=== PATIENT | female | born 1950 | race Caucasian/White ===

== ENCOUNTER 2017-07-11 22:25 | Emergency (ER) | payer BC ==
[~2017-07-11] VITALS: Ht 162.6 cm; Wt 77.1 kg
[2017-07-11 22:31] VITALS: BP_SYST 139
[2017-07-11 23:30] VITALS: BP_SYST 138
[2017-07-11] MEDS ORDERED: ACETAMINOPHEN 325 MG TABLET PO ONE (23:30)
== END 2017-07-11 23:30 | disposition home or self-care (01) ==
LOC: SED 22:25
DX: S66.911A Strain of unspecified muscle, fascia and tendon at wrist and hand level, right hand, initial encounter (principal); S86.911A Strain of unspecified muscle(s) and tendon(s) at lower leg level, right leg, initial encounter; W06.XXXA Fall from bed, initial encounter; Y93.89 Activity, other specified; Y92.89 Other specified places as the place of occurrence of the external cause; Y99.8 Other external cause status
CPT/HCPCS: 73564; 99284

== ENCOUNTER 2017-07-12 18:30 | Emergency (ER) | payer BC ==
[~2017-07-12] VITALS: Ht 162.6 cm; Wt 77.1 kg
[2017-07-12 18:33] VITALS: BP_SYST 152
[2017-07-12] MEDS ORDERED: MORPHINE 2 MG/ML INJ. SYRINGE IM ONE (18:45)
[2017-07-12] MEDS ORDERED: ONDANSETRON 4 MG ODT TAB PO ONE (19:00)
[2017-07-12] MEDS ORDERED: MAG HYDROX/AL HYDROX/SIMETH 30 ML, LIDOCAINE VISCOUS 2% 15ML (PO) 10 ML, BELLADONNA ALK... PO ONE ×6 (19:45→20:00)
[2017-07-12] MEDS ORDERED: ASPIRIN 81 MG TAB.CHEW ONE (19:51)
[2017-07-12] MEDS ORDERED: ASPIRIN 325 MG TABLET PO ONE (20:00)
[2017-07-12] MEDS ORDERED: NACL 0.9% 1,000 ML IV ONE (20:00)
[2017-07-12 20:09] LABS: BASOPHILS % (AUTO) 0.4 % (0.0-2.0); EOSINOPHILS # (AUTO) 0.1 K/uL (0.0-0.4); EOSINOPHILS % (AUTO) 1.9 % (0.0-4.0); LYMPHOCYTES # (AUTO) 3.8 K/uL (1.0-5.5); LYMPHOCYTES % (AUTO) 50.3 % (20.5-51.5); MEAN CORPUSCULAR HEMOGLOBIN 28 pg (27-31); MEAN CORPUSCULAR HGB CONC 33 % (32-36); MEAN CORPUSCULAR VOLUME 87 fL (79.0-98.0); MONOCYTES # (AUTO) 0.6 K/uL (0.0-1.0); MONOCYTES % (AUTO) 8.1 % (1.7-9.3); NEUTROPHILS # (AUTO) 2.9 K/uL (1.8-7.7); NEUTROPHILS % (AUTO) 39.3 % (40.0-70.0); PLATELET COUNT (AUTO) 236 K/uL (130-430); RED BLOOD CELL COUNT(AUTO) 4.28 MIL/uL (4.2-6.2); RED CELL DISTRIBUTION WIDTH 14.5 % (9.0-15.0); WHITE BLOOD COUNT (AUTO) 7.4 K/uL (4.8-10.8)
[2017-07-12 20:13] LABS: ANION GAP 10 (5-15); CALCIUM 8.5 mg/dL (8.4-11.0); CHLORIDE 106 mmol/L (98-107); CREATININE 1.14 mg/dL (0.55-1.30); GFR AFRICAN AMERICAN 61 mL/min (>90); GLUCOSE 122 mg/dL (70-99); POTASSIUM 3.5 mmol/L (3.5-5.1); SODIUM SERUM 143 mmol/L (136-145); UREA NITROGEN, BLOOD 12 mg/dL (8-21)
[2017-07-12 20:24] LABS: ALANINE AMINOTRANSFERASE 23 U/L (12-78); ALBUMIN 2.9 g/dL (3.4-4.8); ASPARTATE AMINOTRANSFERASE 35 U/L (10-37); LIPASE 193 U/L (73-393); TOTAL BILIRUBIN 0.3 mg/dL (0.0-1.0)
[2017-07-12 21:15] VITALS: BP_SYST 131
== END 2017-07-12 21:15 | disposition home or self-care (01) ==
LOC: SED 18:30
DX: S00.83XA Contusion of other part of head, initial encounter (principal); R10.13 Epigastric pain; I10 Essential (primary) hypertension; Z88.0 Allergy status to penicillin; Z86.73 Personal history of transient ischemic attack (TIA), and cerebral infarction without residual deficits; W01.0XXA Fall on same level from slipping, tripping and stumbling without subsequent striking against object, initial encounter; Y93.89 Activity, other specified; Y92.89 Other specified places as the place of occurrence of the external cause; Y99.8 Other external cause status
CPT/HCPCS: 36415; 70450; 70486; 71010; 80053; 83690; 84484; 85025; 93005; 96360; 96372; 99285; J2001; J2270; Q0162

== ENCOUNTER 2018-11-01 19:39 | Emergency (ER) | payer BC ==
[~2018-11-01] VITALS: Ht 165.1 cm; Wt 81.6 kg
[2018-11-01 19:39] VITALS: BP_SYST 150
--- NOTE | 2018-11-01 19:39 | NUR ---
Patient to ER bed 02 for evaluation. Side rails up.
--- NOTE | 2018-11-01 19:45 | NUR ---
Pt AAOx4 BIB BLS c/o 10/10 pain to L arm and L wrist s/p ground level trip and fall on concrete prior to arrival. Pt was placed in splint. Pt denies KO/blurred vision/N/V/D. No other injuries/complaints per pt/noted. Will continue to monitor.
[2018-11-01] MEDS ORDERED: OMEP40CA33 PO (20:13)
[2018-11-01] MEDS ORDERED: BACL10TA PO (20:14)
[2018-11-01] MEDS ORDERED: AMLO2.5T50 PO (20:15)
[2018-11-01] MEDS ORDERED: ATOR20TA64 PO (20:15)
[2018-11-01] MEDS ORDERED: DIAZ10TA4 PO (20:17)
[2018-11-01] MEDS ORDERED: LOSA100T3 PO (20:18)
--- NOTE | 2018-11-01 20:32 | NUR ---
Pt rqeuested tylenol for pain control. Dr. Isabel notified and will see pt.
[2018-11-01] MEDS ORDERED: DIPHENHYDRAMINE INJ 50 MG/ML VIAL IVP ONE (21:00)
[2018-11-01] MEDS ORDERED: MORPHINE 4 MG/ML INJ. SYRINGE IVP ONE (21:00)
--- NOTE | 2018-11-01 21:00 | NUR ---
ER Dr. Isabel at bedside examining patient.
[2018-11-01] MEDS ORDERED: ACETAMINOPHEN 500 MG TABLET PO ONE (21:15)
--- NOTE | 2018-11-01 21:20 | NUR ---
Medication administered. Pt tolerated well.
--- NOTE | 2018-11-01 22:33 | NUR ---
Wrist splint and arm sling applied. Pt tolerated well. Pt ambulated with steady gait to bathroom.
[2018-11-01 22:52] VITALS: BP_SYST 142
--- NOTE | 2018-11-01 22:52 | NUR ---
Patient given written and verbal discharge instructions and verbalizes understanding. ER MD Isabel discussed with patient the results and treatment provided. Patient in stable condition. ID arm band removed. IV catheter removed intact and dressing applied, no active bleeding. No Rx given. Patient educated on pain management and to follow up with PMD. Pain Scale 2. Dr. Isabel aware. Referral to orthopedist surgeon provided. Opportunity for questions provided and answered. Medication side effect fact sheet provided.
== END 2018-11-01 22:52 | disposition home or self-care (01) ==
LOC: SED 19:39
DX: S52.572A Other intraarticular fracture of lower end of left radius, initial encounter for closed fracture (principal); S52.612A Displaced fracture of left ulna styloid process, initial encounter for closed fracture; E78.00 Pure hypercholesterolemia, unspecified; I10 Essential (primary) hypertension; Z86.73 Personal history of transient ischemic attack (TIA), and cerebral infarction without residual deficits; Z98.51 Tubal ligation status; Z88.0 Allergy status to penicillin; Z79.899 Other long term (current) drug therapy; W01.0XXA Fall on same level from slipping, tripping and stumbling without subsequent striking against object, initial encounter; Y93.01 Activity, walking, marching and hiking; Y92.89 Other specified places as the place of occurrence of the external cause; Y99.8 Other external cause status
CPT/HCPCS: 29125; 73110; 96374; 99283; J1200; J2270

== ENCOUNTER 2023-07-14 16:53 | Observation (INO) | payer BC ==
[~2023-07-14] VITALS: Ht 162.6 cm; Wt 85.3 kg
[~2023-07-14 16:53] MED LIST: AMLO2.5T50 PO; ATOR20TA64 PO; BACL10TA PO; DIAZ10TA4 PO; LOSA-415 PO; OMEP40CA20 PO
[2023-07-14 17:16] VITALS: BP_SYST 115; PULSE 86; RESP 18; TEMP 98.3; O2SAT 96
[2023-07-14 18:58] LABS: BASOPHILS % (AUTO) 0.7 % (0.0-2.0); EOSINOPHILS # (AUTO) 0.1 K/uL (0.0-0.4); EOSINOPHILS % (AUTO) 1.1 % (0.0-4.0); HEMATOCRIT 47.5 % (36-48); HEMOGLOBIN 15.3 g/dL (12.0-16.0); LYMPHOCYTES # (AUTO) 2.1 K/uL (1.0-5.5); LYMPHOCYTES % (AUTO) 31.1 % (20.5-51.5); MEAN CORPUSCULAR HEMOGLOBIN 29 pg (27-31); MEAN CORPUSCULAR HGB CONC 32 % (32-36); MEAN CORPUSCULAR VOLUME 91 fL (79.0-98.0); MONOCYTES # (AUTO) 0.4 K/uL (0.0-1.0); MONOCYTES % (AUTO) 6.1 % (1.7-9.3); NEUTROPHILS # (AUTO) 4.1 K/uL (1.8-7.7); PLATELET COUNT (AUTO) 277 K/uL (130-430); RED BLOOD CELL COUNT(AUTO) 5.23 MIL/uL (4.2-6.2); RED CELL DISTRIBUTION WIDTH 14.5 % (9.0-15.0); WHITE BLOOD COUNT (AUTO) 6.7 K/uL (4.8-10.8)
[2023-07-14 19:11] LABS: ANION GAP 7 (5-15); CALCIUM 9.7 mg/dL (8.4-11.0); CARBON DIOXIDE 29 mmol/L (23-29); CHLORIDE 101 mmol/L (98-107); CREATININE 0.91 mg/dL (0.55-1.30); GLUCOSE 142 mg/dL (74-106); POTASSIUM 4.2 mmol/L (3.5-5.1); SODIUM SERUM 137 mmol/L (136-145); UREA NITROGEN, BLOOD 15 mg/dL (8-21)
[2023-07-14 19:16] LABS: ALANINE AMINOTRANSFERASE 5 U/L (12-78); ALBUMIN 3.4 g/dL (3.4-4.8); ASPARTATE AMINOTRANSFERASE 18 U/L (10-37); BILIRUBIN,DIRECT 0.1 mg/dL (0.0-0.3); LIPASE 26 U/L (16-77); TOTAL BILIRUBIN 0.4 mg/dL (0.0-1.0); TOTAL PROTEIN, SERUM 8.1 g/dL (6.4-8.3)
[2023-07-14] MEDS ORDERED: NACL 0.9% 1,000 ML IV ONE (21:30)
[2023-07-14] MEDS ORDERED: ACETAMINOPHEN 500 MG TABLET PO ONE (21:30)
[2023-07-14] MEDS ORDERED: KETOROLAC TROMETHAMINE 15 MG VIAL IVP ONE (21:30)
[2023-07-14] MEDS ORDERED: traMADol HCL HCL 50 MG TABLET (ULTRAM) PO SCH (23:00)
[2023-07-14] MEDS ORDERED: BACLOFEN 10 MG TABLET PO PRN (23:00)
[2023-07-14] MEDS ORDERED: MORPHINE 2 MG/ML INJ. SYRINGE IVP ONE (23:45)
[2023-07-15] VITALS (9 sets, daily range): BP systolic 112–146; PULSE 68–83; RESP 18; TEMP 96.1–98.3; O2SAT 83–98
[2023-07-15 00:29] LABS: BILIRUBIN,URINE NEGATIVE (NEGATIVE); BLOOD, URINE NEGATIVE (NEGATIVE); CLARITY/URINE CLEAR (CLEAR); COLOR,URINE YELLOW (YELLOW); GLUCOSE,URINE NEGATIVE (NEGATIVE); KETONES,URINE NEGATIVE (NEGATIVE); LEUKOCYTE ESTERASE ,URINE NEGATIVE (NEGATIVE); NITRITE, URINE NEGATIVE (NEGATIVE); PROTEIN URINE NEGATIVE (NEGATIVE); UROBILINOGEN,URINE 0.2 (0.2-1.0)
[2023-07-15 04:47] LABS: BASOPHILS % (AUTO) 0.3 % (0.0-2.0); EOSINOPHILS # (AUTO) 0.1 K/uL (0.0-0.4); EOSINOPHILS % (AUTO) 1.1 % (0.0-4.0); HEMATOCRIT 42.6 % (36-48); HEMOGLOBIN 13.5 g/dL (12.0-16.0); LYMPHOCYTES # (AUTO) 3.3 K/uL (1.0-5.5); MEAN CORPUSCULAR HEMOGLOBIN 29 pg (27-31); MEAN CORPUSCULAR HGB CONC 32 % (32-36); MEAN CORPUSCULAR VOLUME 91 fL (79.0-98.0); MONOCYTES # (AUTO) 0.5 K/uL (0.0-1.0); MONOCYTES % (AUTO) 6.9 % (1.7-9.3); NEUTROPHILS # (AUTO) 3.9 K/uL (1.8-7.7); NEUTROPHILS % (AUTO) 49.7 % (40.0-70.0); PLATELET COUNT (AUTO) 237 K/uL (130-430); RED BLOOD CELL COUNT(AUTO) 4.69 MIL/uL (4.2-6.2); RED CELL DISTRIBUTION WIDTH 14.6 % (9.0-15.0); WHITE BLOOD COUNT (AUTO) 7.8 K/uL (4.8-10.8)
[2023-07-15 05:09] LABS: ANION GAP 9 (5-15); CALCIUM 9.1 mg/dL (8.4-11.0); CARBON DIOXIDE 27 mmol/L (23-29); CHLORIDE 106 mmol/L (98-107); CREATININE 0.87 mg/dL (0.55-1.30); GLUCOSE 106 mg/dL (74-106); POTASSIUM 4.1 mmol/L (3.5-5.1); SODIUM SERUM 142 mmol/L (136-145); UREA NITROGEN, BLOOD 12 mg/dL (8-21)
[2023-07-15] MEDS: SUCRALFATE 1 GM/10 ML UDC GT SCH ×2 (06:24→18:38)
[2023-07-15] MEDS: DIAZEPAM 5 MG TABLET (VALIUM) PO SCH ×2 (09:00→20:10)
[2023-07-15] MEDS ORDERED: METOPROLOL TARTRATE 25 MG TABLET PO SCH (09:00)
[2023-07-15] MEDS ORDERED: OMEPRAZOLE Non-Formulary 20 MG CAPSULE.DR PO SCH (09:00)
[2023-07-15] MEDS: PANTOPRAZOLE SODIUM 40 MG TAB PO SCH (10:05)
[2023-07-15] MEDS: ASPIRIN 81 MG TAB.CHEW PO SCH (10:09)
[2023-07-15] MEDS: LOSARTAN POTASSIUM 50 MG TABLET (COZAAR) PO SCH (10:09)
[2023-07-15] MEDS: amLODIPine BESYLATE 5 MG TABLET PO SCH (10:10)
[2023-07-15] MEDS ORDERED: MELOXICAM 7.5 MG TABLET PO ONE (14:00)
[2023-07-15] MEDS ORDERED: predniSONE 20 MG TABLET PO ONE (14:00)
[2023-07-15] MEDS ORDERED: ATORVASTATIN 20 MG TABLET PO SCH (21:00)
[2023-07-16 00:37] VITALS: BP_SYST 131; PULSE 99; RESP 16; TEMP 96; O2SAT 93
[2023-07-16 04:39] LABS: BASOPHILS % (AUTO) 0.4 % (0.0-2.0); HEMATOCRIT 42.4 % (36-48); HEMOGLOBIN 13.6 g/dL (12.0-16.0); LYMPHOCYTES # (AUTO) 1.8 K/uL (1.0-5.5); LYMPHOCYTES % (AUTO) 22.7 % (20.5-51.5); MEAN CORPUSCULAR HEMOGLOBIN 29 pg (27-31); MEAN CORPUSCULAR HGB CONC 32 % (32-36); MEAN CORPUSCULAR VOLUME 91 fL (79.0-98.0); MONOCYTES # (AUTO) 0.3 K/uL (0.0-1.0); MONOCYTES % (AUTO) 3.7 % (1.7-9.3); NEUTROPHILS # (AUTO) 5.8 K/uL (1.8-7.7); NEUTROPHILS % (AUTO) 73.2 % (40.0-70.0); PLATELET COUNT (AUTO) 260 K/uL (130-430); RED BLOOD CELL COUNT(AUTO) 4.66 MIL/uL (4.2-6.2); RED CELL DISTRIBUTION WIDTH 14.6 % (9.0-15.0); WHITE BLOOD COUNT (AUTO) 7.9 K/uL (4.8-10.8)
[2023-07-16 04:53] LABS: ANION GAP 8 (5-15); CALCIUM 9.4 mg/dL (8.4-11.0); CARBON DIOXIDE 27 mmol/L (23-29); CHLORIDE 106 mmol/L (98-107); CREATININE 0.96 mg/dL (0.55-1.30); GLUCOSE 145 mg/dL (74-106); POTASSIUM 4.6 mmol/L (3.5-5.1); SODIUM SERUM 141 mmol/L (136-145); UREA NITROGEN, BLOOD 18 mg/dL (8-21)
[2023-07-16] MEDS: SUCRALFATE 1 GM/10 ML UDC GT SCH (06:28)
[2023-07-16 08:02] VITALS: BP_SYST 107; PULSE 75; RESP 16; TEMP 96.2; O2SAT 96
[2023-07-16] MEDS ORDERED: predniSONE 20 MG TABLET PO SCH (09:00)
[2023-07-16] MEDS: amLODIPine BESYLATE 5 MG TABLET PO SCH (09:17)
[2023-07-16] MEDS: PANTOPRAZOLE SODIUM 40 MG TAB PO SCH (09:19)
[2023-07-16] MEDS: LOSARTAN POTASSIUM 50 MG TABLET (COZAAR) PO SCH (09:19)
[2023-07-16] MEDS: ASPIRIN 81 MG TAB.CHEW PO SCH (09:20)
[2023-07-16] MEDS: DIAZEPAM 5 MG TABLET (VALIUM) PO SCH (09:20)
[2023-07-16] MEDS ORDERED: LANS15CA15 PO (09:29)
[2023-07-16] MEDS ORDERED: TRIA0.2585 PO (09:34)
[2023-07-16] MEDS ORDERED: MELO-89 PO (09:34)
[2023-07-16] MEDS ORDERED: MELOXICAM 7.5 MG TABLET PO SCH (10:00)
[2023-07-16 10:12] VITALS: O2SAT 96
[2023-07-16 10:48] VITALS: BP_SYST 126; PULSE 75; RESP 16; TEMP 96.2; O2SAT 96
[2023-07-16 11:42] VITALS: BP_SYST 124; PULSE 87; RESP 19; TEMP 98; O2SAT 95
[2023-07-16] MEDS ORDERED: MECLIZINE HCL 25 MG TABLET (ANITVERT) PO SCH (15:00)
== END 2023-07-16 11:40 | disposition home or self-care (01) ==
LOC: SED 16:53 → STU 22:51
PROVIDERS: ADMIT Specialist; ATTEND Specialist
DX: R07.89 Other chest pain (principal); R42 Dizziness and giddiness; K21.9 Gastro-esophageal reflux disease without esophagitis; I10 Essential (primary) hypertension; F41.9 Anxiety disorder, unspecified; E78.5 Hyperlipidemia, unspecified; G47.00 Insomnia, unspecified; G43.909 Migraine, unspecified, not intractable, without status migrainosus; H54.7 Unspecified visual loss; E66.01 Morbid (severe) obesity due to excess calories; E78.00 Pure hypercholesterolemia, unspecified; Z88.0 Allergy status to penicillin; Z86.73 Personal history of transient ischemic attack (TIA), and cerebral infarction without residual deficits; Z96.659 Presence of unspecified artificial knee joint; Z79.899 Other long term (current) drug therapy
CPT/HCPCS: 96361; 96374; 80076; 80048 ×3; 81001; 83690; 85025 ×3; 85651; 84484 ×2; 36415 ×3; 93005 ×2; 71045; 70450; 76376; 99285; 81003; 93306; 95816; 72040; J1885; G0378 ×3; J7512 ×2